=== PATIENT | female | born 1990 | race Two or more races ===

== ENCOUNTER 2019-08-11 07:18 | Inpatient (IN) | payer OTHER ==
[~2019-08-11] VITALS: Ht 162.6 cm; Wt 68.0 kg
[2019-08-11] MEDS ORDERED: PRENATAL + DHA1 EAC1 PO (08:39)
[2019-08-11] MEDS ORDERED: SYNTHROID50 MCG PO (08:39)
== END 2019-08-13 12:16 | disposition home or self-care (01) | DRG 807 ==
LOC: LDR 07:18 → OB/GYN 21:20
PROVIDERS: ADMIT Obstetrics & Gynecology
PROC: 10E0XZZ Delivery of Products of Conception, External Approach (ICD-10-PCS; principal; 2019-08-11)
PROC: 10907ZC Drainage of Amniotic Fluid, Therapeutic from Products of Conception, Via Natural or Artificial Opening (ICD-10-PCS; 2019-08-11)
PROC: 3E033VJ Introduction of Other Hormone into Peripheral Vein, Percutaneous Approach (ICD-10-PCS; 2019-08-11)
PROC: 4A1HXCZ Monitoring of Products of Conception, Cardiac Rate, External Approach (ICD-10-PCS; 2019-08-11)
DX: O80 Encounter for full-term uncomplicated delivery (principal); Z37.0 Single live birth; Z3A.38 38 weeks gestation of pregnancy; Z22.330 Carrier of Group B streptococcus